=== PATIENT | male | born 1955 | race Caucasian/White ===

== ENCOUNTER 2016-05-04 20:54 | Emergency (ER) | payer MEDICARE ==
[~2016-05-04 20:54] MED LIST: ATENOLOL25 MG PO; CARDIZEM C1 PO; ENTERIC COATED325 M1 PO; HYDROCHLOROTH12.5 MG PO; LEVOTHYROXINE75 MCG PO; LISINOPRIL10 MG PO; PROBIOTI1
--- NOTE | 2016-05-05 05:47 | DIAGNOSTIC IMAGING REPORT ---
PROCEDURE: US ABDOMEN ULTRASOUND-LIMITED INDICATION: RUQ PAIN, initial encounter TECHNIQUE: Genao scale and color Doppler sonographic images of the abdomen were obtained. COMPARISON: None. FINDINGS: 4 mm gallbladder mural echogenic nodule suggestive of a polyp. No evidence of gallstones. Normal CBD measures 4 mm. Liver and pancreas are normal. IVC is patent. Normal hepatopetal flow. Normal right kidney measures 11.5 cm. IMPRESSION: 1. Gallbladder polyp
--- NOTE | 2016-05-05 07:09 | ED CLINICAL REPORT ---
Clinical Report - Physicians/Mid Levels [facility] [address] [place] [address] 05/04/2016 20:53 Patient: FAN ELIZALDE Time Seen: 21:17 May 04 2016. Arrived- By private vehicle. Historian- patient. CPT: ER phys charges level 4 plus (#[id number]). EKG interpretation (#[id number]). HISTORY OF PRESENT ILLNESS Chief Complaint: GB attack and high blood pressure. ( HAs a hx of GB attacks twice a year for the past 4 years. No surgery offered at this point. HAs RUQ pain with N/V/D.). This started today and is still present. At its maximum, severity described as moderate. When seen in the E.D., severity described as moderate. Modifying factors. Not worsened by anything. Not relieved by anything. The patient has had loss of appetite. Similar symptoms previously: As bad. Diagnosis: (GB). Recent medical care: Not recently seen/assessed. REVIEW OF SYSTEMS No fever, sore throat, sinus drainage, nasal congestion or cough. No difficulty breathing, chest pain, black stools, bloody stools or chills. No difficulty with urination, skin rash, back pain, calf pain or blackouts. No double vision, diabetic symptoms or easy bruising. The patient has had abdominal pain, nausea, vomiting and diarrhea. No difficulty with ambulation. All systems otherwise negative, except as recorded above. PAST HISTORY Crush Injury. Liver disease. Atrial Fibrillation. Heart Disease. Thyroid Disease. Hypertension. Neck cancer . Tonsillectomy. Medications: Diltiazem HCl Oral (Tablet 120 mg) 1 tablet, daily. Spironolactone Oral 25 mg, 2x a day. Levothyroxine Sodium Oral. Lisinopril Oral 20 mg, daily. Allergies: No Known Drug Allergy. SOCIAL HISTORY Occasional alcohol use. History of occasional drug use: marijuana. ADDITIONAL NOTES The nursing notes have been reviewed. PHYSICAL EXAM Vital Signs: 05/04/2016 21:01 BP: 221/133. HR: 122. RR: 17. O2 saturation: 100%. Temp: 97.5 F. Pain level now: 5/10. Appearance: Alert. Anxious. Patient in mild distress. Eyes: Eyes normal inspection. ENT: Pharynx normal. Neck: Normal inspection. CVS: Normal heart rate and rhythm. Heart sounds normal. Pulses normal. Respiratory: No respiratory distress. Breath sounds normal. Chest nontender. Abdomen: Soft. Moderate tenderness in the right upper quadrant. Bowel sounds normal. Back: Normal inspection. No CVA tenderness. Skin: Skin warm. Normal skin color. No rash. Extremities: Extremities exhibit normal ROM. No lower extremity edema. Neuro: Oriented X 3. No motor deficit. No sensory deficit. LABS, X-RAYS, AND EKG EKG: Normal sinus rhythm. Rate: 117. Tachycardia. Normal P waves. Normal QRS complex. Normal axis. Normal ST and T waves. Prior EKG unavailable. The study has been interpreted contemporaneously. The study has been independently viewed by me. The EKG appears to be a good tracing. EKG #2: No acute ischemia. Normal sinus rhythm. Normal P waves. Normal MILAGRO. Normal QRS complex. Normal axis. peaked T waves V3-4. Changes present when compared to prior EKG. The study has been interpreted contemporaneously. The study has been independently viewed by me. The EKG appears to be a good tracing. EKG #3: Normal sinus rhythm. Normal P waves. Normal QRS complex. Normal axis. peaked T wave V3-4. EKG unchanged when compared with prior EKG. The study has been interpreted contemporaneously. The study has been independently viewed by me. The EKG appears to be a good tracing. Abdominal Sonogram: The gallbladder is normal. Common duct is normal. Normal liver. (Polyp in GB). The study was independently viewed by me. Study included the gallbladder. Laboratory Tests: Troponin-I: (FRAN: 05/05/2016 03:00) ( [facility] [place] Final results Test Result Flag Units (Reference) TROPONIN I 0.20 ng/mL (0.00-1.5) TROPONIN REFERENCE RANGE:<0.1 NEGATIVE0.1-1.5 INDETERMINANT>1.5 POSITIVE UA-Culture if indicated: (FRAN: 05/04/2016 02:20) ( MsgRcvd 05/05/2016 02:36) Final results Test Result Flag Units (Reference) URINE COLOR YELLOW URINE APPEARANCE CLEAR URINE GLUCOSE TRACE (NEGATIVE) URINE BILIRUBIN NEGATIVE (NEGATIVE) URINE KETONE NEGATIVE (NEGATIVE) URINE SPECIFIC GRAVITY >= 1.030 (1.010-1.030) URINE PH 6.0 (5.0-8.0) URINE PROTEIN 3+ (NEGATIVE) URINE UROBILINOGEN 0.2 EU/dL (0.2-1.0) URINE NITRITE NEGATIVE (NEGATIVE) URINE BLOOD TRACE-LYSED (NEGATIVE) URINE LEUK ESTERASE NEGATIVE (NEGATIVE) URINE RBC 1-3 rbc/hpf (0-1) URINE WBC 0-1 wbc/hpf (0-1) URINE EPITHELIAL CELLS NONE SEEN EPI/hpf (0-5) URINE BACTERIA NONE SEEN (NONE SEEN) URINE COMMENT CULT NOT INDICATED HYALINE CAST: 10-15/LPFURINE CULTURES ARE SET-UP BASED ON THE FOLLOWING CRITERIA:POSITIVE NITRITEPOSITIVE LEUKOCYTE ESTERASEGREATER THAN 10 WHITE BLOOD CELLSMODERATE (2+) OR GREATER BACTERIA CBC w Diff: (FRAN: 05/04/2016 21:10) ( MsgRcvd 05/04/2016 21:22) Final results Test Result Flag Units (Reference) WHITE BLOOD COUNT 10.1 K/uL (4.5-11.5) RED BLOOD COUNT 5.93 H M/uL (4.50-5.90) HEMOGLOBIN 17.2 gm/dL (13.5-17.5) HEMATOCRIT 51.0 % (41.0-53.0) MEAN CELL VOLUME 86 fL (80-100) MEAN CORPUSCULAR HGB 29 pg (26-34) MEAN CORPUSCULAR HGB CONC 34 g/dL (31-37) RED CELL DISTRIBUTION WIDTH 12.9 % (11.6-14.8) PLATELET COUNT 264 K/uL (150-400) NEUTROPHIL % 88.5 H % (50-75) LYMPH % 8.9 L % (25-40) MONO % 2.6 L % (3-14) EOSINOPHIL % 0 % (0-4) BASOPHIL % 0 % (0-2) Lipase: (FRAN: 05/04/2016 21:10) ( MtgRcvd 05/04/2016 23:10) Final results Test Result Flag Units (Reference) LIPASE 309 U/L (73-393) AMYLASE 72 U/L (25-115) CHEM 13 PANEL: (FRAN: 05/04/2016 21:10) ( MsgRcvd 05/04/2016 21:38) Final results Test Result Flag Units (Reference) GLUCOSE 173 H mg/dL (70-110) BUN 16 mg/dL (7-18) CREATININE 1.6 H mg/dL (0.6-1.3) Estimated GFR 47.10 mL/min Estimated GFR- 57.08 mL/min Note: Persistent reduction over 3 months in eGFR<60 mL/min/1.73 m2 defines CKD. Patients with eGFR values>=60 mL/min/1.73 m2 may also have CKD if evidence ofpersistent proteinuria. Additional information may be foundat www.kidney.org. SODIUM 133 L mmol/L (136-145) POTASSIUM 4.5 mmol/L (3.5-5.1) CHLORIDE 94 L mmol/L (98-107) CARBON DIOXIDE 25 mmol/L (21-32) CALCIUM 9.8 mg/dL (8.5-10.1) TOTAL PROTEIN 9.9 H g/dL (6.4-8.2) ALBUMIN 4.7 g/dL (3.3-5.0) BILIRUBIN, TOTAL 0.7 mg/dL (0.0-1.0) ALKALINE PHOSPHATASE 90 U/L (46-116) AST (SGOT) 47 H U/L (15-37) ALT (SGPT) 79 H U/L (12-78) CPK 60 U/L (24-260) MAGNESIUM 1.5 L mg/dL (1.8-2.4) TROPONIN I 0.09 ng/mL (0.00-1.5) TROPONIN REFERENCE RANGE:<0.1 NEGATIVE0.1-1.5 INDETERMINANT>1.5 POSITIVE . PROGRESS AND PROCEDURES Course of Care: Heplock Dilaudid 1 mg IV Zofran 4 mg IV Pain better but blood pressure still high Hydralazine 10 mg IV Blood pressure better. Zofran 4 mg IV Phenergan 12.5 mg IV Now able to take own blood pressure meds Lisinopril 20 mg po spironolactone 25 mg po cardiazem 120mg po carafate 20ml po protonix 40 mg po Pt had peak T wave on monitor so EKG done and showed peaked T's in septal leads. Troponin s checked. Pt had no symptoms. 05:43 05/05/16. Pt troponin slowly up. Will check again at 0600. Pt is better now . He notes that he does have reflux and this is worse when he takes his pills and lays down. troponin not rising. Patient/family counseled. Disposition: Discharged. Condition: stable. CLINICAL IMPRESSION Uncontrolled essential hypertension. Intermittent abdominal pain of unclear etiology. INSTRUCTIONS Avoid alcohol and NSAIDS. Examples of NSAIDS include aspirin, ibuprofen (Advil) and naproxen (Aleve). Avoid spicy foods. Other diet: caffeine. Warnings: Further evaluation is necessary. GENERAL WARNINGS: Return or contact your physician immediately if your condition worsens or changes unexpectedly, if not improving as expected, or if other problems arise. Your Current Medications: CONTINUE TAKING THE FOLLOWING MEDICATIONS: Diltiazem HCl Oral : Tablet 120 mg, 1 tablet daily. Levothyroxine Sodium Oral. Lisinopril Oral : 20 mg daily. Spironolactone Oral : 25 mg 2x a day. Prescription Medications: Carafate 1 gm tablets: four times daily (30 minutes before meals and at bedtime) for 10 days. Dispense forty (40). No refills. Prilosec 40 mg capsules: take 1 capsule orally every day for 10 days. Dispense ten (10). No refill. Substitution is permissible. Understanding of the discharge instructions verbalized by patient. Follow-up with: Avila Marquez MD, [facility], , [address] [place] [address], , [facility] [address] Follow up in one week. Call for an appointment. (Electronically signed by Ron Paredes MD 05/06/2016 12:33)
--- NOTE | 2016-05-05 07:09 | ED ORDER SUMMARY ---
..... Patient: FAN ELIZALDE OrderSheet [facility] VisitID: [id number] [place] [address] 61y, M Registration Date/Time: 05/04/2016 ORDER SHEET Weight: 74.8 kg (stated) Allergies: No Known Drug Allergy GENERAL ORDERS: Medicinal Plant Picker (Continuous) (CP) (21:08 05/04/2016 RCollier R.N. per protocol) (Ack 21:12 AMcQuoid ER Tech1) (21:13 RCollier R.N.) UA-Culture if indicated Urgent (21:10 05/04/2016 RCollier R.N. per protocol) (Ack 21:12 AMcQuoid ER Tech1) (2:23 TLewis R.N.) Cardiac Panel Stat (21:05/04/2016 RCollier R.N. per protocol) (Ack 21:12 AMcQuoid ER Tech1) (21:32 RCollier R.N.) EKG - ER Stat (21:10 05/04/2016 RCollier R.N. per protocol) (Ack 21:12 AMcQuoid ER Tech1) (21:16 MARKaldwin) US Abdomen Limited (Yes) Urgent (21:21 05/04/2016 Rudolph HEIN) (Ack 21:23 AMcQuoid ER Tech1) (22:33 RCollier R.N.) Lipase Urgent (22:59 05/04/2016 Rudolph HEIN) (22:59 TLewis R.N.) (23:01 AMcQuoid ER Tech1) Amylase Urgent (22:59 05/04/2016 Rudolph HEIN) (22:59 TLewis R.N.) (23:01 AMcQuoid ER Tech1) Troponin-I Urgent (02:42 05/05/2016 Rudolph HEIN) (Ack 2:55 AMcQuoid ER Tech1) (Ack 2:59 SBaldwin) (3:32 AMcQuoid ER Tech1) Troponin-I (Draw at 0500) Urgent (04:04 05/05/2016 Rudolph HEIN) (Ack 4:10 AMcQuoid ER Tech1) (7:37 JSimbeck R.N.) MEDICATION ORDERS: - (Lisinopril 20 mg PO) (23:19 05/04/2016 Rudolph HEIN) (0:57 TLewis R.N.) -- (Spironolactone 25 mg po) (23:19 05/04/2016 Rudolph HEIN) (0:57 TLewis R.N.) --- (Diltiazem 120 mg po) (23:19 05/04/2016 Rudolph HEIN) (0:57 TLewis R.N.) Phenergan IV 12.5 mg (NOW) (00:03 05/05/2016 Marjanwis R.N. verbal order read back to Rudolph HEIN) (0:07 TLewis R.N.) Carafate PO 20 ml po (NOW) (01:05/05/2016 Rudolph HEIN) (1:27 TLewis R.N.) Protonix PO 40 mg (NOW) (01:05/05/2016 Rudolph HEIN) (1:27 TLewis R.N.) IV FLUIDS: IV Saline Lock (21:10 05/04/2016 RCollier R.N. per protocol) (Ack 21:10 RCollier R.N.) (23:14 TLewis R.N.) Dilaudid IV 1 mg (NOW) (21:20 05/04/2016 Rudolph HEIN) (Ack 21:31 RCollier R.N.) (21:31 RCollier R.N.) Zofran IV 4 mg (NOW) (21:20 05/04/2016 Rudolph HEIN) (Ack 21:31 RCollier R.N.) (21:31 RCollier R.N.) Hydralazine IV 10 mg (HIGH ALERT MEDICATION, NOW) (21:20 05/04/2016 Rudolph HEIN) (Ack 21:31 RCollier R.N.) (21:32 RCollier R.N.) Zofran IV 4 mg (NOW) (22:58 05/04/2016 Rudolph HEIN) (23:00 TLewis R.N.) IV NS : initial bolus 500 mL (1000 mL/hr), then 250 mL/hr for 4h (NOW); Routine (04:03 05/05/2016 Rudolph HEIN) ([facility] ORDER SHEET NOTES: [Electronically signed by Rodney France R.N. (:05/05/2016)] [Electronically signed by Ron Paredes MD (12:33 05/06/2016)] [Electronically locked/signed by Rodney France R.N. (05/05/2016)]
--- NOTE | 2016-05-05 07:09 | ED NURSING NOTES ---
Clinical Report - Nurses [facility] [address] [place] [address] 05/04/2016 20:53 Patient: FAN ELIZALDE TRIAGE Triage time 21:01. Acuity: LEVEL 3. Chief Complaint: ABDOMINAL PAIN, NAUSEA, VOMITING and DIARRHEA and (high blood pressure). Alert. No acute distress. --21:05 Keysha Lara R.N. 21:01 05/04/16. BP: 221/133. HR: 122. RR: 17. O2 saturation: 100% on room air. Temp: 97.5 F (oral). Pain level now: 07/26. --21:05 Keysha Lara R.N. Weight: 74.8 kg stated. Height/Length: 71 inches Per Patient. BMI: 23. --21:02 Keysha Lara R.N. Medications Lisinopril Oral 20 mg, daily. --21:02 Raghu Eric R.N. Levothyroxine Sodium Oral. --21:02 Keysha Lara R.N. Spironolactone Oral 25 mg, 2x a day. --21:02 Raghu Eric R.N. Diltiazem HCl Oral (Tablet 120 mg) 1 tablet, daily. --21:02 Keysha Lara R.N. The following entry was struck and corrected by Raghu Eric R.N., 23:03 (05/04/16) Reason for correction - other(correction). <<STRICKEN ENTRY-- Spironolactone Oral. --21:02 Keysha Lara R.N. --END STRIKE>> The following entry was struck and corrected by Raghu Eric R.N., 23:03 (05/04/16) Reason for correction - other(correction). <<STRICKEN ENTRY-- Lisinopril Oral. --21:02 Keysha Lara R.N. --END STRIKE>>. Allergies No Known Drug Allergy. --21:02 Keysha Lara R.N. History Arrived by private vehicle. Historian: patient. Primary physician (Jimmy). This started today. SOCIAL HX: Alcohol use. Last drink was 1 weeks ago. History of drug use: marijuana. --21: Keysha Lara R.N. PROBLEMS: Crush Injury. Liver disease. Atrial Fibrillation. Heart Disease. Thyroid Disease. Hypertension. --21: Keysha Lara R.N. ADDITIONAL SURGERIES: Neck cancer . Tonsillectomy. --21: Keysha Lara R.N. Interventions ID band on patient. To treatment room. --21: Keysha Lara R.N. PHYSICAL ASSESSMENT Ambulatory to room. Patient gowned. GENERAL / NEURO / PSYCH: Alert. Oriented X 4. Appears anxious. RESPIRATORY: Respirations not labored. CVS: Capillary refill less than 2 seconds. SKIN: Skin is warm and dry. --21:05 Keysha Lara R.N. NURSING PROGRESS NOTES Head of bed elevated. Two patient identifiers checked. Call light placed in reach. Side rails up x 1. Bed placed in lowest position. Brakes of bed on. --21: Keysha Lara R.N. Patient ready for evaluation- chart flagged. --21: Keysha Lara R.N. monitoring tech, pulse oximeter and NIBP monitor placed on patient; monitor alarms on. --21:05 Keysha Lara R.N. 21:17 05/04/2016 Site #1 started via IV in the right antecubital space with an 18g angiocath, with aseptic technique and good blood return; one attempt. Blood drawn: rainbow set. Labeled in the presence of the patient and sent to the lab. Saline lock flushed with 10 mL saline. --21:17 Genevieve Greco EKG time: (21:12:57 PM). EKG was performed by a jordon and shown to the ED physician. --21:23 Neil Bell 21:25 05/04/2016 Zofran (Ondansetron HCl) IVP 4 mg given over 30 second(s) via site #1. Allergies verified and confirmed 5 rights. IV patency established. IV site checked: no pain, redness, or swelling. IV flushed thoroughly pre- and post-medication administration. IVP given by RN. --21:31 Keysha Lara R.N. 21:27 05/04/2016 Dilaudid (HYDROmorphone HCl PF) IVP 1 mg given over 1 minute(s) via site #1. Sedative warning given to the patient. IV patency established. IV site checked: no pain, redness, or swelling. IV flushed thoroughly pre- and post-medication administration. IVP given by RN. --21:31 Keysha Lara R.N. 21:30 05/04/2016 Hydralazine IVP 10 mg given over 30 second(s) via site #1. Allergies verified and confirmed 5 rights. IV patency established. IV site checked: no pain, redness, or swelling. IV flushed thoroughly pre- and post-medication administration. IVP given by RN. --21:32 Keysha Lara R.N. 22:56 05/04/16. BP: 147/109. HR: 113. RR: 13. O2 saturation: 98%. Pain level now 4/10. --22:56 Raghu Eric R.N. 23:00 05/04/2016 Zofran (Ondansetron HCl) IVP 4 mg given over 1 minute(s) via site #1. Allergies verified and confirmed 5 rights. IV patency established. IV site checked: no pain, redness, or swelling. IV flushed thoroughly pre- and post-medication administration. IVP given by RN. --23:00 Raghu Eric R.N. ( Monitor was alarming at 145 HR. Pt was sitting on the side of the bed and vomited x 1 around 120cc. VS were taken. Pt was alert and oriented x 4.). --23:19 Raghu Eric R.N. 23:17 05/04/16. BP: 197/124. HR: 127. RR: 22. O2 saturation: 98%. Pain level now 3/10. --23:19 Raghu Eric R.N. 00:07 05/05/2016 PHENERGAN (Promethazine HCl) IVP 12.5 mg given over 1 minute(s) via site #1. Allergies verified and confirmed 5 rights. IV patency established. IV site checked: no pain, redness, or swelling. IV flushed thoroughly pre- and post-medication administration. IVP given by RN. --00:07 Raghu Eric R.N. 00:07 05/05/16. BP: 217/138. HR: 122. RR: 15. O2 saturation: 98%. Pain level now 2/10. --00:10 Raghu Eric R.N. ( pt still feeling nausea. MD was informed. Pt is sitting up in bed and on the monitor. VS were taken. Pt is alert and oriented x 4.). --00:10 Raghu Eric R.N. 00:54 05/05/16. BP: 112/86. HR: 89. RR: 18. O2 saturation: 98%. Pain level now 0/10. --00:54 Raghu Eric R.N. ( Pt is feeling better.). --00:54 Raghu Eric R.N. 00:57 05/05/2016 - (Lisinopril 20 mg PO) was refused by patient (pt wants to take his meds at 0500, which is his normal time). Raghu Eric --00:57 Raghu Eric R.N. 00:57 05/05/2016 --- (Diltiazem 120 mg po) was refused by patient (pt wants to take the meds at 0500, his normal time). Raghu Eric --00:57 Raghu Eric R.N. 00:57 05/05/2016 -- (Spironolactone 25 mg po) was refused by patient (pt wants to take his meds at 0500, his normal time). Raghu Eric --00:57 Raghu Eric R.N. 01:27 05/05/2016 Carafate (Sucralfate) PO 2 gm given. Allergies verified and confirmed 5 rights. --01:27 Raghu Eric R.N. 01:27 05/05/2016 Protonix (Pantoprazole Sodium) PO 40 mg given. Allergies verified and confirmed 5 rights. --01:27 Raghu Eric R.N. ( Pt is no longer having n/v and able to keep down po meds and water. pt is no longer having pain.). --01:31 Raghu Eric R.N. ( Pt is resting in bed. The monitor was alarming and an EKG was performed. Pt denies any chest pain or sob at this time.). --02:23 Raghu Eric R.N. 02:18 05/05/16. BP: 136/88. HR: 79. RR: 16. O2 saturation: 98%. Pain level now 0/10. --02:23 Raghu Eric R.N. 03:45 05/05/16. BP: 136/86. HR: 78. RR: 15. O2 saturation: 100%. Pain level now 0/10. --03:45 Raghu Eric R.N. 04:05. EKG was performed by a jordon and shown to the ED physician. --04:12 McQuderrell, Manju, ER Tech1 04:15 05/05/2016 Started bag #1 1000 mL IV Fluids IV NS (Saline); bolus of 500 mL wide open then at 250 mL/hr over 4 hour(s) via site #1 via IV pump. Allergies verified and confirmed 5 rights. IV patency established. IV site checked: no pain, redness, or swelling. IV flushed thoroughly pre- and post-medication administration. Completed per protocol. --04:15 Raghu Eric R.N. 04:19 05/05/16. BP: 127/85. HR: 80. RR: 14. O2 saturation: 99%. Pain level now 0/10. --04:20 Raghu Eric R.N. ( Pt is resting in bed with no complaints of pain or sob). --04:20 Raghu Eric R.N. 05:38 05/05/16. BP: 121/82. HR: 80. RR: 15. O2 saturation: 97%. Pain level now 0/10. --05:38 Raghu Eric R.N. 06:12 05/05/16. BP: 147/93. HR: 82. RR: 15. O2 saturation: 98%. Pain level now 0/10. --06:13 Raghu Eric R.N. ( Pt is laying in bed.). --06:13 Raghu Eric R.N. 07:20 05/05/2016 IV Fluids IV NS Discontinued: bag #1 STOPPED upon discharge. Total amount infused: 800 mL. IV patency established. IV site checked: no pain, redness, or swelling. IV flushed thoroughly. --07:38 Rodney France R.N. DISPOSITION / DISCHARGE 07:25 05/05/2016 Site #1 removed upon discharge. Bandage applied. --07:25 Rodney France R.N. 07:27 05/05/16. Departure time: 724. Condition at departure: improved and stable. No learning barriers present. Discharge instructions provided and reviewed with the patient. Reviewed medication(s). Patient verbalized understanding. Written instructions provided in Upper Sorbian. The patient was discharged by the physician. He was discharged home and accompanied by parent. He left the Emergency Department ambulatory and via private vehicle. Patient driving. --07:29 Rodney France R.N. 07:00 05/05/16. BP: 156/90. HR: 90. RR: 16. O2 saturation: 99% on room air. Temp: 97.5 F. Pain level now: 0/10. --07:29 Rodney rFance R.N. Locked/Released at 05/05/2016 15:17 by Rodney France R.N.
--- NOTE | 2016-05-05 07:09 | ED ORDER SUMMARY ---
..... Patient: FAN ELIZALDE OrderSheet [facility] VisitID: [id number] [place] [address] 61y, M Registration Date/Time: 05/04/2016 ORDER SHEET Weight: 74.8 kg (stated) Allergies: No Known Drug Allergy GENERAL ORDERS: Radiologic Therapist (Continuous) (CP) (21:08 05/04/2016 RCollier R.N. per protocol) (Ack 21:12 AMcQuoid ER Tech1) (21:13 RCollier R.N.) UA-Culture if indicated Urgent (21:10 05/04/2016 RCollier R.N. per protocol) (Ack 21:12 AMcQuoid ER Tech1) (2:23 TLewis R.N.) Cardiac Panel Stat (21:05/04/2016 RCollier R.N. per protocol) (Ack 21:12 AMcQuoid ER Tech1) (21:32 RCollier R.N.) EKG - ER Stat (21:10 05/04/2016 RCollier R.N. per protocol) (Ack 21:12 AMcQuoid ER Tech1) (21:16 MARKaldwin) US Abdomen Limited (Yes) Urgent (21:21 05/04/2016 Rudolph HEIN) (Ack 21:23 AMcQuoid ER Tech1) (22:33 RCollier R.N.) Lipase Urgent (22:59 05/04/2016 Rudolph HEIN) (22:59 TLewis R.N.) (23:01 AMcQuoid ER Tech1) Amylase Urgent (22:59 05/04/2016 Rudolph HEIN) (22:59 TLewis R.N.) (23:01 AMcQuoid ER Tech1) Troponin-I Urgent (02:42 05/05/2016 Rudolph HEIN) (Ack 2:55 AMcQuoid ER Tech1) (Ack 2:59 SBaldwin) (3:32 AMcQuoid ER Tech1) Troponin-I (Draw at 0500) Urgent (04:04 05/05/2016 Rudolph HEIN) (Ack 4:10 AMcQuoid ER Tech1) (7:37 JSimbeck R.N.) MEDICATION ORDERS: - (Lisinopril 20 mg PO) (23:19 05/04/2016 Rudolph HEIN) (0:57 TLewis R.N.) -- (Spironolactone 25 mg po) (23:19 05/04/2016 Rudolph HEIN) (0:57 TLewis R.N.) --- (Diltiazem 120 mg po) (23:19 05/04/2016 Rudolph HEIN) (0:57 TLewis R.N.) Phenergan IV 12.5 mg (NOW) (00:03 05/05/2016 Marjanwis R.N. verbal order read back to Rudolph HEIN) (0:07 TLewis R.N.) Carafate PO 20 ml po (NOW) (01:05/05/2016 Rudolph HEIN) (1:27 TLewis R.N.) Protonix PO 40 mg (NOW) (01:05/05/2016 Rudolph HEIN) (1:27 TLewis R.N.) IV FLUIDS: IV Saline Lock (21:10 05/04/2016 RCollier R.N. per protocol) (Ack 21:10 RCollier R.N.) (23:14 TLewis R.N.) Dilaudid IV 1 mg (NOW) (21:20 05/04/2016 Rudolph HEIN) (Ack 21:31 RCollier R.N.) (21:31 RCollier R.N.) Zofran IV 4 mg (NOW) (21:20 05/04/2016 Rudolph HEIN) (Ack 21:31 RCollier R.N.) (21:31 RCollier R.N.) Hydralazine IV 10 mg (HIGH ALERT MEDICATION, NOW) (21:20 05/04/2016 Rudolph HEIN) (Ack 21:31 RCollier R.N.) (21:32 RCollier R.N.) Zofran IV 4 mg (NOW) (22:58 05/04/2016 Rudolph HEIN) (23:00 TLewis R.N.) IV NS : initial bolus 500 mL (1000 mL/hr), then 250 mL/hr for 4h (NOW); Routine (04:03 05/05/2016 Rudolph HEIN) (4:15 [facility] ORDER SHEET NOTES: [Electronically signed by Rodney France R.N. (:05/05/2016)] [Electronically signed by Ron Paredes MD (12:33 05/06/2016)] [Electronically locked/signed by Rodney France R.N. (05/05/2016)]
--- NOTE | 2016-05-05 07:09 | ED CLINICAL REPORT ---
Clinical Report - Physicians/Mid Levels [facility] [address] [place] [address] 05/04/2016 20:53 Patient: FAN ELIZALDE Time Seen: 21:17 May 04 2016. Arrived- By private vehicle. Historian- patient. CPT: ER phys charges level 4 plus (#[id number]). EKG interpretation (#[id number]). HISTORY OF PRESENT ILLNESS Chief Complaint: GB attack and high blood pressure. ( HAs a hx of GB attacks twice a year for the past 4 years. No surgery offered at this point. HAs RUQ pain with N/V/D.). This started today and is still present. At its maximum, severity described as moderate. When seen in the E.D., severity described as moderate. Modifying factors. Not worsened by anything. Not relieved by anything. The patient has had loss of appetite. Similar symptoms previously: As bad. Diagnosis: (GB). Recent medical care: Not recently seen/assessed. REVIEW OF SYSTEMS No fever, sore throat, sinus drainage, nasal congestion or cough. No difficulty breathing, chest pain, black stools, bloody stools or chills. No difficulty with urination, skin rash, back pain, calf pain or blackouts. No double vision, diabetic symptoms or easy bruising. The patient has had abdominal pain, nausea, vomiting and diarrhea. No difficulty with ambulation. All systems otherwise negative, except as recorded above. PAST HISTORY Crush Injury. Liver disease. Atrial Fibrillation. Heart Disease. Thyroid Disease. Hypertension. Neck cancer . Tonsillectomy. Medications: Diltiazem HCl Oral (Tablet 120 mg) 1 tablet, daily. Spironolactone Oral 25 mg, 2x a day. Levothyroxine Sodium Oral. Lisinopril Oral 20 mg, daily. Allergies: No Known Drug Allergy. SOCIAL HISTORY Occasional alcohol use. History of occasional drug use: marijuana. ADDITIONAL NOTES The nursing notes have been reviewed. PHYSICAL EXAM Vital Signs: 05/04/2016 21:01 BP: 221/133. HR: 122. RR: 17. O2 saturation: 100%. Temp: 97.5 F. Pain level now: 5/10. Appearance: Alert. Anxious. Patient in mild distress. Eyes: Eyes normal inspection. ENT: Pharynx normal. Neck: Normal inspection. CVS: Normal heart rate and rhythm. Heart sounds normal. Pulses normal. Respiratory: No respiratory distress. Breath sounds normal. Chest nontender. Abdomen: Soft. Moderate tenderness in the right upper quadrant. Bowel sounds normal. Back: Normal inspection. No CVA tenderness. Skin: Skin warm. Normal skin color. No rash. Extremities: Extremities exhibit normal ROM. No lower extremity edema. Neuro: Oriented X 3. No motor deficit. No sensory deficit. LABS, X-RAYS, AND EKG EKG: Normal sinus rhythm. Rate: 117. Tachycardia. Normal P waves. Normal QRS complex. Normal axis. Normal ST and T waves. Prior EKG unavailable. The study has been interpreted contemporaneously. The study has been independently viewed by me. The EKG appears to be a good tracing. EKG #2: No acute ischemia. Normal sinus rhythm. Normal P waves. Normal [place]. Normal QRS complex. Normal axis. peaked T waves V3-4. Changes present when compared to prior EKG. The study has been interpreted contemporaneously. The study has been independently viewed by me. The EKG appears to be a good tracing. EKG #3: Normal sinus rhythm. Normal P waves. Normal QRS complex. Normal axis. peaked T wave V3-4. EKG unchanged when compared with prior EKG. The study has been interpreted contemporaneously. The study has been independently viewed by me. The EKG appears to be a good tracing. Abdominal Sonogram: The gallbladder is normal. Common duct is normal. Normal liver. (Polyp in GB). The study was independently viewed by me. Study included the gallbladder. Laboratory Tests: Troponin-I: (FRAN: 05/05/2016 03:00) ( [facility] [place]05[place] 03:28) Final results Test Result Flag Units (Reference) TROPONIN I 0.20 ng/mL (0.00-1.5) TROPONIN REFERENCE RANGE:<0.1 NEGATIVE0.1-1.5 INDETERMINANT>1.5 POSITIVE UA-Culture if indicated: (FRAN: 05/04/2016 02:20) ( MsgRcvd 05/05/2016 02:36) Final results Test Result Flag Units (Reference) URINE COLOR YELLOW URINE APPEARANCE CLEAR URINE GLUCOSE TRACE (NEGATIVE) URINE BILIRUBIN NEGATIVE (NEGATIVE) URINE KETONE NEGATIVE (NEGATIVE) URINE SPECIFIC GRAVITY >= 1.030 (1.010-1.030) URINE PH 6.0 (5.0-8.0) URINE PROTEIN 3+ (NEGATIVE) URINE UROBILINOGEN 0.2 EU/dL (0.2-1.0) URINE NITRITE NEGATIVE (NEGATIVE) URINE BLOOD TRACE-LYSED (NEGATIVE) URINE LEUK ESTERASE NEGATIVE (NEGATIVE) URINE RBC 1-3 rbc/hpf (0-1) URINE WBC 0-1 wbc/hpf (0-1) URINE EPITHELIAL CELLS NONE SEEN EPI/hpf (0-5) URINE BACTERIA NONE SEEN (NONE SEEN) URINE COMMENT CULT NOT INDICATED HYALINE CAST: 10-15/LPFURINE CULTURES ARE SET-UP BASED ON THE FOLLOWING CRITERIA:POSITIVE NITRITEPOSITIVE LEUKOCYTE ESTERASEGREATER THAN 10 WHITE BLOOD CELLSMODERATE (2+) OR GREATER BACTERIA CBC w Diff: (FRAN: 05/04/2016 21:10) ( MsgRcvd 05/04/2016 21:22) Final results Test Result Flag Units (Reference) WHITE BLOOD COUNT 10.1 K/uL (4.5-11.5) RED BLOOD COUNT 5.93 H M/uL (4.50-5.90) HEMOGLOBIN 17.2 gm/dL (13.5-17.5) HEMATOCRIT 51.0 % (41.0-53.0) MEAN CELL VOLUME 86 fL (80-100) MEAN CORPUSCULAR HGB 29 pg (26-34) MEAN CORPUSCULAR HGB CONC 34 g/dL (31-37) RED CELL DISTRIBUTION WIDTH 12.9 % (11.6-14.8) PLATELET COUNT 264 K/uL (150-400) NEUTROPHIL % 88.5 H % (50-75) LYMPH % 8.9 L % (25-40) MONO % 2.6 L % (3-14) EOSINOPHIL % 0 % (0-4) BASOPHIL % 0 % (0-2) Lipase: (FRAN: 05/04/2016 21:10) ( UtgRcvd 05/04/2016 23:10) Final results Test Result Flag Units (Reference) LIPASE 309 U/L (73-393) AMYLASE 72 U/L (25-115) CHEM 13 PANEL: (FRAN: 05/04/2016 21:10) ( MsgRcvd 05/04/2016 21:38) Final results Test Result Flag Units (Reference) GLUCOSE 173 H mg/dL (70-110) BUN 16 mg/dL (7-18) CREATININE 1.6 H mg/dL (0.6-1.3) Estimated GFR 47.10 mL/min Estimated GFR- 57.08 mL/min Note: Persistent reduction over 3 months in eGFR<60 mL/min/1.73 m2 defines CKD. Patients with eGFR values>=60 mL/min/1.73 m2 may also have CKD if evidence ofpersistent proteinuria. Additional information may be foundat www.[email or web address].org. SODIUM 133 L mmol/L (136-145) POTASSIUM 4.5 mmol/L (3.5-5.1) CHLORIDE 94 L mmol/L (98-107) CARBON DIOXIDE 25 mmol/L (21-32) CALCIUM 9.8 mg/dL (8.5-10.1) TOTAL PROTEIN 9.9 H g/dL (6.4-8.2) ALBUMIN 4.7 g/dL (3.3-5.0) BILIRUBIN, TOTAL 0.7 mg/dL (0.0-1.0) ALKALINE PHOSPHATASE 90 U/L (46-116) AST (SGOT) 47 H U/L (15-37) ALT (SGPT) 79 H U/L (12-78) CPK 60 U/L (24-260) MAGNESIUM 1.5 L mg/dL (1.8-2.4) TROPONIN I 0.09 ng/mL (0.00-1.5) TROPONIN REFERENCE RANGE:<0.1 NEGATIVE0.1-1.5 INDETERMINANT>1.5 POSITIVE . PROGRESS AND PROCEDURES Course of Care: Heplock Dilaudid 1 mg IV Zofran 4 mg IV Pain better but blood pressure still high Hydralazine 10 mg IV Blood pressure better. Zofran 4 mg IV Phenergan 12.5 mg IV Now able to take own blood pressure meds Lisinopril 20 mg po spironolactone 25 mg po cardiazem 120mg po carafate 20ml po protonix 40 mg po Pt had peak T wave on monitor so EKG done and showed peaked T's in septal leads. Troponin s checked. Pt had no symptoms. 05:43 05/05/16. Pt troponin slowly up. Will check again at 0600. Pt is better now . He notes that he does have reflux and this is worse when he takes his pills and lays down. troponin not rising. Patient/family counseled. Disposition: Discharged. Condition: stable. CLINICAL IMPRESSION Uncontrolled essential hypertension. Intermittent abdominal pain of unclear etiology. INSTRUCTIONS Avoid alcohol and NSAIDS. Examples of NSAIDS include aspirin, ibuprofen (Advil) and naproxen (Aleve). Avoid spicy foods. Other diet: caffeine. Warnings: Further evaluation is necessary. GENERAL WARNINGS: Return or contact your physician immediately if your condition worsens or changes unexpectedly, if not improving as expected, or if other problems arise. Your Current Medications: CONTINUE TAKING THE FOLLOWING MEDICATIONS: Diltiazem HCl Oral : Tablet 120 mg, 1 tablet daily. Levothyroxine Sodium Oral. Lisinopril Oral : 20 mg daily. Spironolactone Oral : 25 mg 2x a day. Prescription Medications: Carafate 1 gm tablets: four times daily (30 minutes before meals and at bedtime) for 10 days. Dispense forty (40). No refills. Prilosec 40 mg capsules: take 1 capsule orally every day for 10 days. Dispense ten (10). No refill. Substitution is permissible. Understanding of the discharge instructions verbalized by patient. Follow-up with: Avila Marquez MD, [facility], , [address] [place] [address], , [facility] [id number] Follow up in one week. Call for an appointment. (Electronically signed by Ron Paredes MD 05/06/2016 12:33)
--- NOTE | 2016-05-06 12:34 | ED MAR SUMMARY ---
..... Medication Administration Record [facility] [address] [facility] [place] [address] Patient: FAN ELIZALDE Visit ID: [id number] 61y, M Weight: 74.8 kg Height/Length: 71 in BMI: 23 ALLERGIES: No Known Drug Allergy Given :05/04/2016 Keysha Lara R.N. Medication Administered: ZOFRAN [IVP] (ONDANSETRON HCL), Dose: 4 mg IVP over 30 second(s), Site: #1 right AC. Medication Ordered: Zofran IV 4 mg (NOW). Given 05/04/2016 Keysha Lara R.N. Medication Administered: DILAUDID [IVP] (HYDROMORPHONE HCL PF), Dose: 1 mg IVP over 1 minute(s), Site: #1 right AC. Medication Ordered: Dilaudid IV 1 mg (NOW). Given 05/04/2016 Keysha Lara R.N. Medication Administered: HYDRALAZINE [IVP], Dose: 10 mg IVP over 30 second(s), Site: #1 right AC. Medication Ordered: Hydralazine IV 10 mg (HIGH ALERT MEDICATION, NOW). Given 23:05/04/2016 Raghu Eric R.N. Medication Administered: ZOFRAN [IVP] (ONDANSETRON HCL), Dose: 4 mg IVP over 1 minute(s), Site: #1 right AC. Medication Ordered: Zofran IV 4 mg (NOW). Given :05/05/2016 Raghu Eric R.N. Medication Administered: PHENERGAN [IVP] (PROMETHAZINE HCL), Dose: 12.5 mg IVP over 1 minute(s), Site: #1 right AC. Medication Ordered: Phenergan IV 12.5 mg (NOW). Given 05/05/2016 Raghu Eric R.N. Medication Administered: CARAFATE [PO] (SUCRALFATE), Dose: 2 gm PO. Medication Ordered: Carafate PO 20 ml po (NOW). Given 05/05/2016 [place], Raghu, R.N. Medication Administered: PROTONIX [PO] (PANTOPRAZOLE SODIUM), Dose: 40 mg PO. Medication Ordered: Protonix PO 40 mg (NOW). Start 04:15 05/05/2016 Raghu Eric R.N., Stop 07:20 05/05/2016 Rodney France R.N. Medication Administered: IV NS (SALINE), Dose: IV Fluids over 4 hour(s), Rate: 250 mL/hr, Bolus: 500 mL wide open, Dispensed: 1000 mL bag, Site: #1 right AC. Medication Ordered: IV NS : initial bolus 500 mL (1000 mL/hr), then 250 mL/hr for 4h (NOW); Routine.
--- NOTE | 2016-05-06 12:34 | ED DISCHARGE INSTRUCTIONS ---
Patient: FAN ELIZALDE General Instructions [facility] VisitID: [id number] [address] [place], [place] [id number] 61y, M Registration Date/Time: 05/04/2016 Uncontrolled essential hypertension. Intermittent abdominal pain of unclear etiology. INSTRUCTIONS Avoid alcohol and NSAIDS. Examples of NSAIDS include aspirin, ibuprofen (Advil) and naproxen (Aleve). Avoid spicy foods. Other diet: caffeine. Warnings: Further evaluation is necessary. GENERAL WARNINGS: Return or contact your physician immediately if your condition worsens or changes unexpectedly, if not improving as expected, or if other problems arise. Your Current Medications: CONTINUE TAKING THE FOLLOWING MEDICATIONS: Diltiazem HCl Oral : Tablet 120 mg, 1 tablet daily. Levothyroxine Sodium Oral. Lisinopril Oral : 20 mg daily. Spironolactone Oral : 25 mg 2x a day. Prescription Medications: Carafate 1 gm tablets: four times daily (30 minutes before meals and at bedtime) for 10 days. Dispense forty (40). No refills. Prilosec 40 mg capsules: take 1 capsule orally every day for 10 days. Dispense ten (10). No refill. Substitution is permissible. Understanding of the discharge instructions verbalized by patient. Follow-up with: Avila Marquez MD, [facility], , [address] [place], [place] [id number] Follow up in one week. Call for an appointment. ADDITIONAL INFORMATION High Blood Pressure --Established High Blood Pressure (Hypertension) is a chronic disease. The cause is unknown in most cases. It can usually be controlled with lifestyle changes and/or medicines. Symptoms of high blood pressure may include headache, dizziness, visual changes, chest pain and shortness of breath. Sometimes it causes no symptoms at all. However, even if there are no symptoms, untreated high blood pressure increases the risk of heart attack, also known as acute myocardial infarction, or AMI, and stroke. It is a serious health risk and should not be ignored. A normal blood pressure is 120/80 or less. The first (top) number is the "systolic" pressure. The second (bottom) number is the "diastolic" pressure. Hypertension exists when either the top number is 140 or higher, OR the bottom number is 90 or higher on repeated measurements. Home Care: All patients with high blood pressure should do the following to lower their pressure. If you are on medicines, then these methods may reduce or eliminate your need for medicines in the future. Begin a weight loss program if you are overweight. Reduce your salt intake. Avoid high salt foods (olives, pickles, smoked meats, salted potato chips, etc.). Do not add salt to your food at the table. Use only small amounts of salt when cooking. Begin an exercise program. Discuss with your doctor what type of exercise program would be best for you. It doesn't have to be difficult. Even brisk walking for 20 minutes three times a week is a good form of exercise. Avoid medicines which contain heart stimulants. This includes many cold and sinus decongestant pills and sprays as well as diet pills. Check the warnings about hypertension on the label. Stimulants such as amphetamine or cocaine could be lethal for someone with hypertension. Never take these. Limit your caffeine intake or switch to caffeine-free products. Stop smoking. If you are a long-time smoker, this can be hard. Enroll in a stop-smoking program to improve your chance of success. Learning how to handle stress better is an important part of any program to lower blood pressure. Learn about relaxation methods such as meditation, yoga or biofeedback. If medicines were prescribed, take them exactly as directed. Missing doses may cause your blood pressure get out of control. Consider buying an automatic blood pressure machine (available at most pharmacies). Use this to monitor your blood pressure at home and report the results to your doctor. Follow Up: Regular visits to your own physician for blood pressure checks and medicine adjustment is an important part of your care. Make a follow-up appointment as directed by our staff. Get Prompt Medical Attention if any of the following occur: Chest pain or shortness of breath Severe headache Throbbing or rushing sound in the ears Nosebleed Sudden severe abdominal pain Extreme drowsiness, confusion or fainting Dizziness or vertigo (dizziness with spinning sensation) Weakness of an arm or leg or one side of the face Difficulty with speech or vision [place] Diet A bland diet is used for patients with an upset stomach. It consists of foods that are mild and easy to digest. It is better to eat small frequent meals rather than three large meals a day. BEVERAGES OK: Fruit juices, non-caffeinated teas and coffee, non-carbonated rodriguez AVOID: Carbonated beverage, caffeinated tea and coffee, all alcoholic beverages BREAD OK: Refined white, wheat or rye bread, saroj or soda crackers, Fifi toast, plain rolls, bagels AVOID: Whole-grain bread CEREAL OK: Refined cereals: cooked or ready to eat AVOID: Whole grain cereals and granola, or those containing bran, seeds or nuts DESSERTS OK: Peanut butter and all others except those to "avoid" AVOID: Chocolate, cocoa, coconut, popcorn, nuts, seeds, jam, marmalade FRUITS OK: Canned, cooked, frozen or fresh fruits without seeds or tough skin AVOID: Olives, skin and seeds of fruit MEATS OK: All fresh or preserved meat, fish and fowl AVOID: Any that are prepared with those spices to "avoid" CHEESE & EGGS OK: Eggs, cottage cheese, cream cheese, other cheeses AVOID: All cheeses made with those spices to "avoid" POTATOES & PASTA OK: Potato, rice, macaroni, noodles, spaghetti AVOID: None SOUPS OK: All soups without heavy seasoning AVOID: Soups made with those spices to "avoid" VEGETABLES OK: Canned, cooked, fresh or frozen mildly flavored vegetables without seeds, skins or coarse fiber AVOID: Vegetables prepared with those spices to "avoid"; skin and seeds of vegetables and those with coarse fiber SPICES OK: Salt, lemon and [place] juice, vinegar, all extracts, coretta, cinnamon, thyme, mace, allspice, paprika AVOID: [place] powder, cloves, pepper, seed spices, garlic, gravy pickles, highly seasoned salad dressings Sucralfate Oral tablet What is this medicine? SUCRALFATE (LUBNA alex fate) helps to treat ulcers of the intestine. How should I use this medicine? Take this medicine by mouth with a glass of water. Follow the directions on the prescription label. This medicine works best if you take it on an empty stomach, 1 hour before meals. Take your doses at regular intervals. Do not take your medicine more often than directed. Do not stop taking except on your doctor's advice. Talk to your dice table person regarding the use of this medicine in children. Special care may be needed. What side effects may I notice from receiving this medicine? Side effects that you should report to your doctor or health healthcare associate as soon as possible: allergic reactions like skin rash, itching or hives, swelling of the face, lips, or tongue difficulty breathing Side effects that usually do not require medical attention (report to your doctor or health healthcare associate if they continue or are bothersome): back pain constipation drowsy, dizzy dry mouth headache stomach upset, gas trouble sleeping What may interact with this medicine? antacid cimetidine digoxin ketoconazole phenytoin quinidine ranitidine some antibiotics like ciprofloxacin, norfloxacin, and ofloxacin theophylline thyroid hormones warfarin What if I miss a dose? If you miss a dose, take it as soon as you can. If it is almost time for your next dose, take only that dose. Do not take double or extra doses. Where should I keep my medicine? Keep out of the reach of children. Store at room temperature between 15 and 30 degrees C (59 and 86 degrees F). Keep container tightly closed. Throw away any unused medicine after the expiration date. What should I tell my health care provider before I take this medicine? They need to know if you have any of these conditions: kidney disease an unusual or allergic reaction to sucralfate, other medicines, foods, dyes, or preservatives or trying to get breast-feeding What should I watch for while using this medicine? Visit your doctor or health healthcare associate for regular check ups. Let your doctor know if your symptoms do not improve or if you feel worse. Antacids should not be taken within one half hour before or after this medicine. Omeprazole Magnesium Gastro-resistant tablet What is this medicine? OMEPRAZOLE (oh ME pray zol) prevents the production of acid in the stomach. It is used to treat the symptoms of heartburn. You can buy this medicine without a prescription. This product is not for long-term use, unless otherwise directed by your doctor or health healthcare associate. How should I use this medicine? Take this medicine by mouth. Follow the directions on the product label. If you are taking this medicine without a prescription, take one tablet every day. Do not use for longer than 14 days or repeat a course of treatment more often than every 4 months unless directed by a doctor or healthcare professional. Take your dose at regular intervals every 24 hours. Swallow the tablet whole with a drink of water. Do not crush, break or chew. This medicine works best if taken on an empty stomach 30 minutes before breakfast. If you are using this medicine with the prescription of your doctor or healthcare professional, follow the directions you were given. Do not take your medicine more often than directed. Talk to your dice table person regarding the use of this medicine in children. Special care may be needed. What side effects may I notice from receiving this medicine? Side effects that you should report to your doctor or health healthcare associate as soon as possible: allergic reactions like skin rash, itching or hives, swelling of the face, lips, or tongue bone, muscle or joint pain breathing problems chest pain or chest tightness dark yellow or brown urine diarrhea dizziness fast, irregular heartbeat feeling faint or lightheaded fever or sore throat muscle spasm palpitations redness, blistering, peeling or loosening of the skin, including inside the mouth seizures tremors unusual bleeding or bruising unusually weak or tired yellowing of the eyes or skin Side effects that usually do not require medical attention (Report these to your doctor or health healthcare associate if they continue or are bothersome.): constipation dry mouth headache loose stools nausea What may interact with this medicine? Do not take this medicine with any of the following medications: atazanavir clopidogrel nelfinavir This medicine may also interact with the following medications: ampicillin certain medicines for anxiety or sleep certain medicines that treat or prevent blood clots like warfarin cyclosporine diazepam digoxin disulfiram iron salts phenytoin prescription medicine for fungal or yeast infection like itraconazole, ketoconazole, voriconazole saquinavir tacrolimus What if I miss a dose? If you miss a dose, take it as soon as you can. If it is almost time for your next dose, take only that dose. Do not take double or extra doses. Where should I keep my medicine? Keep out of the reach of children. Store at room temperature between 20 and 25 degrees C (68 and 77 degrees F). Protect from light and moisture. Throw away any unused medicine after the expiration date. What should I tell my health care provider before I take this medicine? They need to know if you have any of these conditions: black or bloody stools chest pain difficulty swallowing have had heartburn for over 3 months have heartburn with dizziness, lightheadedness or sweating liver disease stomach pain unexplained weight loss vomiting with blood wheezing an unusual or allergic reaction to omeprazole, other medicines, foods, dyes, or preservatives or trying to get breast-feeding What should I watch for while using this medicine? It can take several days before your heartburn gets better. Check with your doctor or health healthcare associate if your condition does not start to get better, or if it gets worse. Do not treat diarrhea with over the counter products. Contact your doctor if you have diarrhea that lasts more than 2 days or if it is severe and watery. Do not treat yourself for heartburn with this medicine for more than 14 days in a row. You should only use this medicine for a 2-week treatment period once every 4 months. If your symptoms return shortly after your therapy is complete, or within the 4 month time frame, call your doctor or health healthcare associate. You have been given the following additional information: Hypertension, Established Diet, [place] (Adult) Sucralfate Oral tablet Omeprazole Magnesium Gastro-resistant tablet (Electronically signed by Ron Paredes MD 05/06/2016 12:33)
--- NOTE | 2016-05-06 12:34 | ED MED RECONCILIATION SUMMARY ---
Patient: FAN ELIZALDE Medication Reconciliation Report [facility] VisitID: [id number] [address] [place] [address] 61y, M Registration Date/Time: 05/04/2016 Weight: 74.8 kg Height/Length: 71 in. BMI: 23.0 ALLERGIES: No Known Drug Allergy The patient's Home Medications are listed below: CONTINUE TAKING THE FOLLOWING MEDICATIONS: Diltiazem HCl Oral (120 mg) 1 tablet, daily Levothyroxine Sodium Oral Lisinopril Oral 20 mg, daily Spironolactone Oral 25 mg, 2x a day The source(s) of the original Home Medication information: Not obtained. The following Medications were given to the patient in the Emergency Department: Zofran [IVP] IVP 4 mg, administered: 05/04/2016 9:25:00 PM Dilaudid [IVP] IVP 1 mg, administered: 05/04/2016 9:27:00 PM Hydralazine [IVP] IVP 10 mg, administered: 05/04/2016 9:30:00 PM Zofran [IVP] IVP 4 mg, administered: 05/04/2016 11:00:00 PM PHENERGAN [IVP] IVP 12.5 mg, administered: 05/05/2016 12:07:00 AM Carafate [PO] PO 2 gm, administered: 05/05/2016 1:27:00 AM Protonix [PO] PO 40 mg, administered: 05/05/2016 1:27:00 AM IV NS IV Fluids bolus 500 mL wide open, then 250 mL/hr, administered: 05/05/2016 4:15:00 AM The following Medications were prescribed to the patient: Carafate 1 gm tablets: four times daily (30 minutes before meals and at bedtime) for 10 days. Dispense forty (40). No refills. -- Ron Paredes MD Prilosec 40 mg capsules: take 1 capsule orally every day for 10 days. Dispense ten (10). No refill. Substitution is permissible. -- Ron Paredes MD
--- NOTE | 2016-05-06 12:34 | ED MAR SUMMARY ---
..... Medication Administration Record [facility] [address] [facility] [place] [address] Patient: FAN ELIZALDE Visit ID: [id number] 61y, M Weight: 74.8 kg Height/Length: 71 in BMI: 23 ALLERGIES: No Known Drug Allergy Given :05/04/2016 Keysha Lara R.N. Medication Administered: ZOFRAN [IVP] (ONDANSETRON HCL), Dose: 4 mg IVP over 30 second(s), Site: #1 right AC. Medication Ordered: Zofran IV 4 mg (NOW). Given 05/04/2016 Keysha Lara R.N. Medication Administered: DILAUDID [IVP] (HYDROMORPHONE HCL PF), Dose: 1 mg IVP over 1 minute(s), Site: #1 right AC. Medication Ordered: Dilaudid IV 1 mg (NOW). Given 05/04/2016 Keysha Lara R.N. Medication Administered: HYDRALAZINE [IVP], Dose: 10 mg IVP over 30 second(s), Site: #1 right AC. Medication Ordered: Hydralazine IV 10 mg (HIGH ALERT MEDICATION, NOW). Given 23:05/04/2016 Raghu Eric R.N. Medication Administered: ZOFRAN [IVP] (ONDANSETRON HCL), Dose: 4 mg IVP over 1 minute(s), Site: #1 right AC. Medication Ordered: Zofran IV 4 mg (NOW). Given :05/05/2016 Raghu Eric R.N. Medication Administered: PHENERGAN [IVP] (PROMETHAZINE HCL), Dose: 12.5 mg IVP over 1 minute(s), Site: #1 right AC. Medication Ordered: Phenergan IV 12.5 mg (NOW). Given 05/05/2016 Raghu Eric R.N. Medication Administered: CARAFATE [PO] (SUCRALFATE), Dose: 2 gm PO. Medication Ordered: Carafate PO 20 ml po (NOW). Given 05/05/2016 [place], Raghu, R.N. Medication Administered: PROTONIX [PO] (PANTOPRAZOLE SODIUM), Dose: 40 mg PO. Medication Ordered: Protonix PO 40 mg (NOW). Start 04:15 05/05/2016 Raghu Eric R.N., Stop 07:20 05/05/2016 Rodney France R.N. Medication Administered: IV NS (SALINE), Dose: IV Fluids over 4 hour(s), Rate: 250 mL/hr, Bolus: 500 mL wide open, Dispensed: 1000 mL bag, Site: #1 right AC. Medication Ordered: IV NS : initial bolus 500 mL (1000 mL/hr), then 250 mL/hr for 4h (NOW); Routine.
--- NOTE | 2016-05-06 12:34 | ED MED RECONCILIATION SUMMARY ---
Patient: FAN ELIZALDE Medication Reconciliation Report [facility] VisitID: [id number] [address] [place] [address] 61y, M Registration Date/Time: 05/04/2016 Weight: 74.8 kg Height/Length: 71 in. BMI: 23.0 ALLERGIES: No Known Drug Allergy The patient's Home Medications are listed below: CONTINUE TAKING THE FOLLOWING MEDICATIONS: Diltiazem HCl Oral (120 mg) 1 tablet, daily Levothyroxine Sodium Oral Lisinopril Oral 20 mg, daily Spironolactone Oral 25 mg, 2x a day The source(s) of the original Home Medication information: Not obtained. The following Medications were given to the patient in the Emergency Department: Zofran [IVP] IVP 4 mg, administered: 05/04/2016 9:25:00 PM Dilaudid [IVP] IVP 1 mg, administered: 05/04/2016 9:27:00 PM Hydralazine [IVP] IVP 10 mg, administered: 05/04/2016 9:30:00 PM Zofran [IVP] IVP 4 mg, administered: 05/04/2016 11:00:00 PM PHENERGAN [IVP] IVP 12.5 mg, administered: 05/05/2016 12:07:00 AM Carafate [PO] PO 2 gm, administered: 05/05/2016 1:27:00 AM Protonix [PO] PO 40 mg, administered: 05/05/2016 1:27:00 AM IV NS IV Fluids bolus 500 mL wide open, then 250 mL/hr, administered: 05/05/2016 4:15:00 AM The following Medications were prescribed to the patient: Carafate 1 gm tablets: four times daily (30 minutes before meals and at bedtime) for 10 days. Dispense forty (40). No refills. -- Ron Paredes MD Prilosec 40 mg capsules: take 1 capsule orally every day for 10 days. Dispense ten (10). No refill. Substitution is permissible. -- Ron Paredes MD
--- NOTE | 2016-05-06 12:34 | ED DISCHARGE INSTRUCTIONS ---
Patient: FAN ELIZALDE General Instructions [facility] VisitID: [id number] [address] [place] [id number] 61y, M Registration Date/Time: 05/04/2016 Uncontrolled essential hypertension. Intermittent abdominal pain of unclear etiology. INSTRUCTIONS Avoid alcohol and NSAIDS. Examples of NSAIDS include aspirin, ibuprofen (Advil) and naproxen (Aleve). Avoid spicy foods. Other diet: caffeine. Warnings: Further evaluation is necessary. GENERAL WARNINGS: Return or contact your physician immediately if your condition worsens or changes unexpectedly, if not improving as expected, or if other problems arise. Your Current Medications: CONTINUE TAKING THE FOLLOWING MEDICATIONS: Diltiazem HCl Oral : Tablet 120 mg, 1 tablet daily. Levothyroxine Sodium Oral. Lisinopril Oral : 20 mg daily. Spironolactone Oral : 25 mg 2x a day. Prescription Medications: Carafate 1 gm tablets: four times daily (30 minutes before meals and at bedtime) for 10 days. Dispense forty (40). No refills. Prilosec 40 mg capsules: take 1 capsule orally every day for 10 days. Dispense ten (10). No refill. Substitution is permissible. Understanding of the discharge instructions verbalized by patient. Follow-up with: Avila Marquez MD, [facility], , [address] [place], [place] [id number] Follow up in one week. Call for an appointment. ADDITIONAL INFORMATION High Blood Pressure --Established High Blood Pressure (Hypertension) is a chronic disease. The cause is unknown in most cases. It can usually be controlled with lifestyle changes and/or medicines. Symptoms of high blood pressure may include headache, dizziness, visual changes, chest pain and shortness of breath. Sometimes it causes no symptoms at all. However, even if there are no symptoms, untreated high blood pressure increases the risk of heart attack, also known as acute myocardial infarction, or AMI, and stroke. It is a serious health risk and should not be ignored. A normal blood pressure is 120/80 or less. The first (top) number is the "systolic" pressure. The second (bottom) number is the "diastolic" pressure. Hypertension exists when either the top number is 140 or higher, OR the bottom number is 90 or higher on repeated measurements. Home Care: All patients with high blood pressure should do the following to lower their pressure. If you are on medicines, then these methods may reduce or eliminate your need for medicines in the future. Begin a weight loss program if you are overweight. Reduce your salt intake. Avoid high salt foods (olives, pickles, smoked meats, salted potato chips, etc.). Do not add salt to your food at the table. Use only small amounts of salt when cooking. Begin an exercise program. Discuss with your doctor what type of exercise program would be best for you. It doesn't have to be difficult. Even brisk walking for 20 minutes three times a week is a good form of exercise. Avoid medicines which contain heart stimulants. This includes many cold and sinus decongestant pills and sprays as well as diet pills. Check the warnings about hypertension on the label. Stimulants such as amphetamine or cocaine could be lethal for someone with hypertension. Never take these. Limit your caffeine intake or switch to caffeine-free products. Stop smoking. If you are a long-time smoker, this can be hard. Enroll in a stop-smoking program to improve your chance of success. Learning how to handle stress better is an important part of any program to lower blood pressure. Learn about relaxation methods such as meditation, yoga or biofeedback. If medicines were prescribed, take them exactly as directed. Missing doses may cause your blood pressure get out of control. Consider buying an automatic blood pressure machine (available at most pharmacies). Use this to monitor your blood pressure at home and report the results to your doctor. Follow Up: Regular visits to your own physician for blood pressure checks and medicine adjustment is an important part of your care. Make a follow-up appointment as directed by our staff. Get Prompt Medical Attention if any of the following occur: Chest pain or shortness of breath Severe headache Throbbing or rushing sound in the ears Nosebleed Sudden severe abdominal pain Extreme drowsiness, confusion or fainting Dizziness or vertigo (dizziness with spinning sensation) Weakness of an arm or leg or one side of the face Difficulty with speech or vision [place] Diet A bland diet is used for patients with an upset stomach. It consists of foods that are mild and easy to digest. It is better to eat small frequent meals rather than three large meals a day. BEVERAGES OK: Fruit juices, non-caffeinated teas and coffee, non-carbonated rodriguez AVOID: Carbonated beverage, caffeinated tea and coffee, all alcoholic beverages BREAD OK: Refined white, wheat or rye bread, saroj or soda crackers, Fifi toast, plain rolls, bagels AVOID: Whole-grain bread CEREAL OK: Refined cereals: cooked or ready to eat AVOID: Whole grain cereals and granola, or those containing bran, seeds or nuts DESSERTS OK: Peanut butter and all others except those to "avoid" AVOID: Chocolate, cocoa, coconut, popcorn, nuts, seeds, jam, marmalade FRUITS OK: Canned, cooked, frozen or fresh fruits without seeds or tough skin AVOID: Olives, skin and seeds of fruit MEATS OK: All fresh or preserved meat, fish and fowl AVOID: Any that are prepared with those spices to "avoid" CHEESE & EGGS OK: Eggs, cottage cheese, cream cheese, other cheeses AVOID: All cheeses made with those spices to "avoid" POTATOES & PASTA OK: Potato, rice, macaroni, noodles, spaghetti AVOID: None SOUPS OK: All soups without heavy seasoning AVOID: Soups made with those spices to "avoid" VEGETABLES OK: Canned, cooked, fresh or frozen mildly flavored vegetables without seeds, skins or coarse fiber AVOID: Vegetables prepared with those spices to "avoid"; skin and seeds of vegetables and those with coarse fiber SPICES OK: Salt, lemon and [place] juice, vinegar, all extracts, coretta, cinnamon, thyme, mace, allspice, paprika AVOID: [place] powder, cloves, pepper, seed spices, garlic, gravy pickles, highly seasoned salad dressings Sucralfate Oral tablet What is this medicine? SUCRALFATE (LUBNA alex fate) helps to treat ulcers of the intestine. How should I use this medicine? Take this medicine by mouth with a glass of water. Follow the directions on the prescription label. This medicine works best if you take it on an empty stomach, 1 hour before meals. Take your doses at regular intervals. Do not take your medicine more often than directed. Do not stop taking except on your doctor's advice. Talk to your ecommerce project manager regarding the use of this medicine in children. Special care may be needed. What side effects may I notice from receiving this medicine? Side effects that you should report to your doctor or health day care provider as soon as possible: allergic reactions like skin rash, itching or hives, swelling of the face, lips, or tongue difficulty breathing Side effects that usually do not require medical attention (report to your doctor or health day care provider if they continue or are bothersome): back pain constipation drowsy, dizzy dry mouth headache stomach upset, gas trouble sleeping What may interact with this medicine? antacid cimetidine digoxin ketoconazole phenytoin quinidine ranitidine some antibiotics like ciprofloxacin, norfloxacin, and ofloxacin theophylline thyroid hormones warfarin What if I miss a dose? If you miss a dose, take it as soon as you can. If it is almost time for your next dose, take only that dose. Do not take double or extra doses. Where should I keep my medicine? Keep out of the reach of children. Store at room temperature between 15 and 30 degrees C (59 and 86 degrees F). Keep container tightly closed. Throw away any unused medicine after the expiration date. What should I tell my health care provider before I take this medicine? They need to know if you have any of these conditions: kidney disease an unusual or allergic reaction to sucralfate, other medicines, foods, dyes, or preservatives or trying to get breast-feeding What should I watch for while using this medicine? Visit your doctor or health day care provider for regular check ups. Let your doctor know if your symptoms do not improve or if you feel worse. Antacids should not be taken within one half hour before or after this medicine. Omeprazole Magnesium Gastro-resistant tablet What is this medicine? OMEPRAZOLE (oh ME pray zol) prevents the production of acid in the stomach. It is used to treat the symptoms of heartburn. You can buy this medicine without a prescription. This product is not for long-term use, unless otherwise directed by your doctor or health day care provider. How should I use this medicine? Take this medicine by mouth. Follow the directions on the product label. If you are taking this medicine without a prescription, take one tablet every day. Do not use for longer than 14 days or repeat a course of treatment more often than every 4 months unless directed by a doctor or healthcare professional. Take your dose at regular intervals every 24 hours. Swallow the tablet whole with a drink of water. Do not crush, break or chew. This medicine works best if taken on an empty stomach 30 minutes before breakfast. If you are using this medicine with the prescription of your doctor or healthcare professional, follow the directions you were given. Do not take your medicine more often than directed. Talk to your ecommerce project manager regarding the use of this medicine in children. Special care may be needed. What side effects may I notice from receiving this medicine? Side effects that you should report to your doctor or health day care provider as soon as possible: allergic reactions like skin rash, itching or hives, swelling of the face, lips, or tongue bone, muscle or joint pain breathing problems chest pain or chest tightness dark yellow or brown urine diarrhea dizziness fast, irregular heartbeat feeling faint or lightheaded fever or sore throat muscle spasm palpitations redness, blistering, peeling or loosening of the skin, including inside the mouth seizures tremors unusual bleeding or bruising unusually weak or tired yellowing of the eyes or skin Side effects that usually do not require medical attention (Report these to your doctor or health day care provider if they continue or are bothersome.): constipation dry mouth headache loose stools nausea What may interact with this medicine? Do not take this medicine with any of the following medications: atazanavir clopidogrel nelfinavir This medicine may also interact with the following medications: ampicillin certain medicines for anxiety or sleep certain medicines that treat or prevent blood clots like warfarin cyclosporine diazepam digoxin disulfiram iron salts phenytoin prescription medicine for fungal or yeast infection like itraconazole, ketoconazole, voriconazole saquinavir tacrolimus What if I miss a dose? If you miss a dose, take it as soon as you can. If it is almost time for your next dose, take only that dose. Do not take double or extra doses. Where should I keep my medicine? Keep out of the reach of children. Store at room temperature between 20 and 25 degrees C (68 and 77 degrees F). Protect from light and moisture. Throw away any unused medicine after the expiration date. What should I tell my health care provider before I take this medicine? They need to know if you have any of these conditions: black or bloody stools chest pain difficulty swallowing have had heartburn for over 3 months have heartburn with dizziness, lightheadedness or sweating liver disease stomach pain unexplained weight loss vomiting with blood wheezing an unusual or allergic reaction to omeprazole, other medicines, foods, dyes, or preservatives or trying to get breast-feeding What should I watch for while using this medicine? It can take several days before your heartburn gets better. Check with your doctor or health day care provider if your condition does not start to get better, or if it gets worse. Do not treat diarrhea with over the counter products. Contact your doctor if you have diarrhea that lasts more than 2 days or if it is severe and watery. Do not treat yourself for heartburn with this medicine for more than 14 days in a row. You should only use this medicine for a 2-week treatment period once every 4 months. If your symptoms return shortly after your therapy is complete, or within the 4 month time frame, call your doctor or health day care provider. You have been given the following additional information: Hypertension, Established Diet, [place] (Adult) Sucralfate Oral tablet Omeprazole Magnesium Gastro-resistant tablet (Electronically signed by Ron Paredes MD 05/06/2016 12:33)
== END 2016-05-05 07:25 | disposition home or self-care (01) ==
LOC: ED SRH 20:54
DX: R10.11 Right upper quadrant pain (principal); I10 Essential (primary) hypertension; K21.9 Gastro-esophageal reflux disease without esophagitis; I48.91 Unspecified atrial fibrillation; I51.9 Heart disease, unspecified; E07.9 Disorder of thyroid, unspecified; Z79.899 Other long term (current) drug therapy; R11.2 Nausea with vomiting, unspecified
CPT/HCPCS: 90004; 90074; 90100; 90616; 92235; 92530; 92610; 92720; 95059